=== PATIENT | female | born 1970 | race African-American/Black ===

== ENCOUNTER 2024-03-13 12:34 | Outpatient (CLI) | payer OTHER, BC, SELFPAY ==
--- NOTE | ~2024-03-13 | US_ITS ---
EXAMINATION: US thyroid DATE: 03/13/2024 12:56 INDICATION: Thyroid nodule. TECHNIQUE: Multiple ultrasound images of the thyroid were obtained. COMPARISON: None. FINDINGS: The right thyroid lobe measures 4.4 x 2.2 x 1.8 cm. The left thyroid lobe measures 7.3 x 3.0 x 3.7 c m. In the right thyroid lobe, there is a 2.0 cm solid, hypoechoic, wider than tall nodule with brando h margins without echogenic foci (TI-RADS TR4). In the left thyroid lobe, there is a 4.0 cm solid, ve ry hypoechoic, wider than tall nodule with smooth margins without echogenic foci (TR4). In the left t hyroid lobe, there is a 3.6 cm mixed cystic and solid, hypoechoic, wider than tall nodule with ill-de fined margin without echogenic foci (TR3). IMPRESSION: 1. Multinodular goiter. Ultrasound-guided fine-needle aspiration of 2 nodules is recommended. Reviewed, dictated and finalized at location E. IMPRESSION: 1. Multinodular goiter. Ultrasound-guided fine-needle aspiration of 2 nodules i s recommended.
== END 2024-03-13 12:35 ==
LOC: MICIMG 12:36
PROVIDERS: PCP Nurse Practitioner Family; Visit Provider Internal Medicine Endocrinology, Diabetes & Metabolism
DX: E04.2 Nontoxic multinodular goiter (principal)
CPT/HCPCS: 76536

== ENCOUNTER 2024-04-17 12:30 | Outpatient (CLI) | payer OTHER, BC, SELFPAY ==
--- NOTE | ~2024-04-17 | US_ITS ---
EXAMINATION: 1. US FNA w image guidance 2. US FNA additional DATE: 04/17/2024 13:22 INDICATION: Thyroid nodules. TECHNIQUE: The procedure and its benefits and risks were discussed with the patient. Risks specifically discusse d included bleeding. The patient verbalized understanding of the risks and agreed to proceed. The nec k was prepped and draped in the usual sterile manner. 1% lidocaine was used for local anesthesia. S even passes were made with a 25G needle into the lesion in right thyroid lobe under ultrasound guidan ce. Six passes were made with a 25-gauge needle into the lesion in left thyroid lobe under ultrasound roxana dance. There were no immediate complications. FINDINGS: Grayscale ultrasound images demonstrate needles advanced into a 2.0 cm right thyroid nodule for biops y. Grayscale ultrasound images demonstrate needles advanced into a 4.0 cm nodule in left thyroid lobe for biopsy. IMPRESSION: 1. Ultrasound-guided fine needle aspiration of a right thyroid nodule. 2. Ultrasound-guided fine needle aspiration of a left thyroid nodule. Reviewed, dictated and finalized at location A. IMPRESSION: 1. Ultrasound-guided fine needle aspiration of a right thyroid nodule. 2. Ultrasound-guided fine needle aspiration of a left thyroid nodule.
== END 2024-04-17 12:31 | disposition home or self-care (01) ==
LOC: ANHIMG 12:34
PROVIDERS: PCP Nurse Practitioner Family; Visit Provider Internal Medicine Endocrinology, Diabetes & Metabolism
DX: E04.1 Nontoxic single thyroid nodule (principal)
CPT/HCPCS: 10005; 10006; 88172; 88173; 88305

== ENCOUNTER 2025-06-18 11:03 | Outpatient (CLI) | payer OTHER, SELFPAY ==
--- NOTE | ~2025-06-18 | US_ITS ---
US thyroid INDICATION: Multiple bilateral thyroid masses seen on prior examination. Follow- up fine needle aspiration biopsies were benign. TECHNIQUE: Real-time sonographic images of the thyroid gland were obtained. COMPARISON: Ultrasound dated 03/13/2024 FINDINGS: The right thyroid lobe measures 4.4 x 2.2 x 1.8 cm.. The left thyroid lobe measures 7.3 x 3 x 3.7 cm largest mass in the right lobe measures 1.9 cm and is solid, hypoechoic, wider than tall with smooth margins without echogenic foci, TR 4, stable. Largest dominant mass in the left lobe is a complex heterogeneous appearance measuring 4.6 cm. This mass is hypoechoic, wider than tall, solid, smoothly marginated without echogenic foci, TR 4. Bilateral dominant masses were previously biopsy-proven benign. There is normal echotexture and echogenicity throughout the thyroid gland. No discrete nodules identified. Normal vascular flow is present. IMPRESSION: 1. Multinodular goiter without significant change. Consider follow-up ultrasound in 12 months. Reviewed, dictated and finalized at location O. IMPRESSION: 1. Multinodular goiter without significant change. Consider follow-up ultrasou nd in 12 months.
== END 2025-06-18 11:04 | disposition home or self-care (01) ==
LOC: MICIMG 11:04
PROVIDERS: PCP Nurse Practitioner Family; Visit Provider Internal Medicine Endocrinology, Diabetes & Metabolism
DX: E04.2 Nontoxic multinodular goiter (principal)
CPT/HCPCS: 76536